=== PATIENT | female | born 1985 | race American Indian/Alaskan Native ===

== ENCOUNTER 2017-01-23 17:03 | Emergency (ER) | payer SELFPAY ==
[2017-01-23] MEDS ORDERED: NACL 0.9% 1000 ML 1,000 ML IV ONE (18:01)
[2017-01-23 18:03] LABS: Basophils % (Auto) 0.5 % (0.0-1.8); Eosinophils % (Auto) 1.7 % (0.0-4.3); Hematocrit 32.9 % (30.3-42.9); Hemoglobin 10.5 gm/dl (10.1-14.3); Mean Corpuscular HGB Conc 32 % (30-34); Mean Corpuscular Volume 80 fl (79-97); Platelet Count 386 K/mm3 (140-440); Red Blood Count 4.14 M/mm3 (3.65-5.03); Red Cell Distribution Width 18.9 % (13.2-15.2); White Blood Count 6.4 K/mm3 (4.5-11.0)
[2017-01-23 18:10] LABS: Mean Corpuscular Hemoglobin 25 pg (28-32)
[2017-01-23] MEDS ORDERED: MORPHINE IM ONE (18:13)
[2017-01-23] MEDS ORDERED: XYLOCAINE TOPICAL 2% ONE (18:22)
[2017-01-23 18:29] LABS: Alanine Aminotransferase 10 units/L (7-56); Albumin 3.9 g/dL (3.9-5); Albumin/Globulin Ratio 0.8 %; Alkaline Phosphatase 112 units/L (35-129); Anion Gap 18 mmol/L; BUN/Creatinine Ratio 11.66; Blood Urea Nitrogen 7 mg/dL (7-17); Calcium 9.2 mg/dL (8.4-10.2); Carbon Dioxide 26 mmol/L (22-30); Glucose 129 mg/dL (65-100); Potassium 3.1 mmol/L (3.6-5.0); Sodium 139 mmol/L (137-145); Total Protein 8.5 g/dL (6.3-8.2)
--- NOTE | 2017-01-23 18:35 | Emergency Department Report ---
ED Female HPI - General Chief complaint: High BP Stated complaint: PAINFUL URINATE Time Seen by Provider: 01/23/17 17:55 Source: patient Mode of arrival: Ambulatory Limitations: No Limitations - History of Present Illness Initial comments: Pt is a 31 yr old female with a h/o HTN s/p C section 30 days ago. Pt now reports pain of her labia and foul smelling discharge. Pt reports she thought it was a yeast infection and she was treated with diflucan by her customer associate, but with no relief. Pt now reports dysuria and severe labial pain and swelling. 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 Otherwise no fevers, chills, NVD, CP, SOB, abdominal pain, erythema or discharge around the csection scar, trauma, or other complaints. Pt is not breast feeding. MD Complaint: vaginal discharge, dysuria, pelvic pain - Related Data Previous Rx's Medication Instructions Recorded Last Taken Type Doxycycline [Vibramycin CAP] 100 mg PO Q12HR #20 capsule 01/23/17 Unknown Rx Lidocaine Topical 2% [Xylocaine 5 ml MM TID #5 tube 01/23/17 Unknown Rx Topical 2%] Valacyclovir HCl [Valtrex] 1,000 mg PO BID #14 tab 01/23/17 Unknown Rx metroNIDAZOLE [Flagyl] 500 mg PO Q12HR #14 tab 01/23/17 Unknown Rx Allergies Allergy/AdvReac Type Severity Reaction Status Date / Time lisinopril Allergy Angioedema Verified 01/23/17 17:26 ED Review of Systems ROS: Stated complaint: PAINFUL URINATE Other details as noted in HPI ED Past Medical Hx - Past Medical History Previous Medical History?: Yes Hx Hypertension: Yes Hx Congestive Heart Failure: Yes - Surgical History Past Surgical History?: Yes Additional Surgical History: x1 - Social History Smoking Status: Never Smoker Substance Use Type: None - Medications Home Medications: Home Medications Medication Instructions Recorded Confirmed Last Taken Type Doxycycline [Vibramycin CAP] 100 mg PO Q12HR #20 capsule 01/23/17 Unknown Rx Lidocaine Topical 2% [Xylocaine 5 ml MM TID #5 tube 01/23/17 Unknown Rx Topical 2%] Valacyclovir HCl [Valtrex] 1,000 mg PO BID #14 tab 01/23/17 Unknown Rx metroNIDAZOLE [Flagyl] 500 mg PO Q12HR #14 tab 01/23/17 Unknown Rx ED Physical Exam - General Limitations: No Limitations ED Course Vital Signs 01/23/17 01/23/17 17:16 18:51 Temperature 97.7 F Pulse Rate 99 H Respiratory 18 16 Rate Blood Pressure 157/121 O2 Sat by Pulse 100 100 Oximetry ED Medical Decision Making - Lab Data Result diagrams: 01/23/17 17:49 01/23/17 17:49 Critical care attestation.: If time is entered above; I have spent that time in minutes in the direct care of this critically ill patient, excluding procedure time. ED Disposition Clinical Impression: Herpes genitalia, Vaginitis Disposition: DISCHARGED TO HOME OR SELFCARE Is pt being admited?: No Condition: Stable Instructions: Genital Herpes Simplex (ED), Vaginitis (ED) Prescriptions: Doxycycline [Vibramycin CAP] 100 mg PO Q12HR #20 capsule Lidocaine Topical 2% [Xylocaine Topical 2%] 5 ml MM TID #5 tube metroNIDAZOLE [Flagyl] 500 mg PO Q12HR #14 tab Valacyclovir HCl [Valtrex] 1,000 mg PO BID #14 tab
[2017-01-23] MEDS ORDERED: K-DUR PO ONE (18:41)
[2017-01-23 18:46] LABS: Bilirubin,Urine NEG (Negative); Blood,Urine NEG (Negative); Ketones,Urine NEG (Negative); Leukocyte Esterase,Urine MOD (Negative); Mucus,Urine 2+ /HPF; Nitrite,Urine NEG (Negative)
[2017-01-23] MEDS ORDERED: XYLOCAINE TOPICAL 2% TP ONE (18:52)
[2017-01-23 21:58] VITALS: BP 154/89
== END 2017-01-23 22:07 | disposition home or self-care (01) ==
LOC: ED 17:03
DX: A60.04 Herpesviral vulvovaginitis (principal); I10 Essential (primary) hypertension; I50.9 Heart failure, unspecified; Z88.8 Allergy status to other drugs, medicaments and biological substances
CPT/HCPCS: 36415; 80053; 81001; 83735; 85025; 87116; 87591; 96360; 96372; 99284; J2270; J7030